=== PATIENT | female | born 1930 | race Caucasian/White ===

== ENCOUNTER 2017-11-04 16:52 | Emergency (ER) | payer OTHER ==
[~2017-11-04] VITALS: Ht 162.6 cm; Wt 61.2 kg
[2017-11-04] MEDS ORDERED: IV NS 0.9% 1,000 ML BAG IV ONE (17:00)
--- NOTE | 2017-11-04 17:00 | NUR ---
CASSANDRA Smith FROM [facility] FOR MORE ALTERED THAN USUAL, UNKOWN LAST WELL KNOWN TIME. SEEN BY MD FOR EVAL. NO NOTED DEFICIT. [id number]. VSS. SAFETY AND COMFORT MEASURES PROVIDED. WILL MONITOR.
[2017-11-04 17:13] LABS: BASOPHILS # (AUTO) 0.4 /CMM (0.0-0.2); BASOPHILS % (AUTO) 3.1 % (0.0-2.0); EOSINOPHILS % (AUTO) 1.9 % (0.0-6.0); HEMATOCRIT 48 % (33-45); HEMOGLOBIN 15.8 g/dL (11.5-14.8); LYMPHOCYTES # (AUTO) 2.9 /CMM (0.8-4.8); MEAN CORPUSCULAR HEMOGLOBIN 31 PG (26.0-33.0); MEAN CORPUSCULAR HGB CONC 33 g/dl (31.0-36.0); MEAN CORPUSCULAR VOLUME 95 fL (82-100); MONOCYTES # (AUTO) 0.8 /CMM (0.1-1.30); MONOCYTES % (AUTO) 6.8 % (2.0-12.0); NEUTROPHILS # (AUTO) 7.1 /CMM (1.8-8.9); NEUTROPHILS % (AUTO) 63.2 % (43.0-81.0); PLATELET COUNT (AUTO) 252 /CMM (150-450); RDW COEFFICIENT OF VARIATION 12.1 (11.5-15.0); RED BLOOD CELL COUNT(AUTO) 5.06 MIL/uL (4.0-5.2); WHITE BLOOD COUNT (AUTO) 11.4 K/uL (4.3-11.0)
--- NOTE | 2017-11-04 17:15 | NUR ---
IV ACCESS STARTED. BLOOD DRAWN FOR LABS. MEDICATED ORDERED. URINE SAMPLE OBTAINED VIA IN AND OUT CATH.
[2017-11-04 17:26] LABS: CALCIUM, SERUM 9.6 mg/dL (8.5-10.1); CARBON DIOXIDE 28 mmol/L (21-32); CHLORIDE 104 mmol/L (98-107); CREATININE 1.6 mg/dL (0.6-1.3); GLUCOSE 93 mg/dL (74-106); POTASSIUM 4.7 mmol/L (3.5-5.1); SODIUM SERUM 138 mmol/L (136-145); UREA NITROGEN, BLOOD 29 mg/dL (7-18)
[2017-11-04 17:27] LABS: INR 1.96 (0.85-1.15)
[2017-11-04 17:30] LABS: ALANINE AMINOTRANSFERASE 15 U/L (12-78); ALBUMIN 3.5 g/dL (3.4-5.0); ALKALINE PHOSPHATASE 82 U/L (46-116); ASPARTATE AMINOTRANSFERASE 22 U/L (15-37); BILIRUBIN,DIRECT 0.2 mg/dL (0.0-0.2); BILIRUBIN,TOTAL 0.8 mg/dL (0.2-1.0); LIPASE 147 U/L (73-393)
--- NOTE | 2017-11-04 17:30 | NUR ---
PT TAKEN TO CT.
[2017-11-04 17:34] LABS: APPEARANCE,URINE Clear (CLEAR); BILIRUBIN,URINE Negative (NEGATIVE); BLOOD, URINE Trace-intact Ery/uL (NEGATIVE); COLOR,URINE Yellow (YELLOW); KETONES,URINE Negative (NEGATIVE); LEUKOCYTE ESTERASE ,URINE Negative (NEGATIVE); NITRITE, URINE Negative (NEGATIVE); PROTEIN,URINE Negative (NEGATIVE); UGLUCOSE Negative (NEGATIVE); UROBILINOGEN,URINE 0.2 EU/dL (0.2)
[2017-11-04 17:38] LABS: TROPONIN I < 0.017 ng/mL (0.00-0.056)
[2017-11-04 17:45] LABS: BACTERIA,URINE None seen /HPF (None Seen); RBC,URINE 0-2 /HPF (0-2); SQUAMOUS EPITHELIAL CELL,UR None Seen /HPF (None Seen); WBC,URINE 0-2 /HPF (0-3)
--- NOTE | 2017-11-04 18:09 | NUR ---
CALLED [facility] SPOKE WITH BERNICE, EXPECTING A CALL BACK FROM A [facility]
--- NOTE | 2017-11-04 18:16 | NUR ---
MELBA DENNY CALLED ON THE PHONE WITH DR BEARDEN.
[2017-11-04] MEDS ORDERED: ASPIRIN 300 MG/SUPP.RECT RC ONE ×2 (18:30→18:33)
--- NOTE | 2017-11-04 18:46 | NUR ---
PATIENT WILL GO TO [facility] ER CALL FOR REPORT. ACCEPTING MD DR NAZARIO. [facility] ETA [id number].
--- NOTE | 2017-11-04 18:56 | NUR ---
REPORT GIVEN TO JULI MANZO OF [facility].
--- NOTE | 2017-11-04 19:02 | NUR ---
RECEIVED REPORT FROM ANAIS GOLDSMITH FOR [facility]
--- NOTE | 2017-11-04 20:20 | NUR ---
PT RESTING IN BED WITH NO S/S OF DISCOMFORT NOTED. WARM BLANKET PROVIDED TO PT. WILL CONTINUE TO MONITOR
[2017-11-04 20:26] VITALS: BP 159/58
--- NOTE | 2017-11-04 20:34 | NUR ---
REPORT GIVEN TO [facility] FOR [facility]. PT BEING TRANSFERRED [facility]. NO S/S OF DISTRESS NOTED UPON TRANSFER.
--- NOTE | 2017-11-04 20:35 | NUR ---
Patient Tranfers to outside Facility Physician:ARAVIND Location:[facility].
== END 2017-11-04 20:36 | disposition short-term general hospital (02) ==
LOC: ER 16:59
DX: I69.320 Aphasia following cerebral infarction (principal); G93.40 Encephalopathy, unspecified; E86.0 Dehydration; I48.91 Unspecified atrial fibrillation; I10 Essential (primary) hypertension; E78.5 Hyperlipidemia, unspecified; E03.9 Hypothyroidism, unspecified
CPT/HCPCS: 36415; 51701; 70450; 71045; 80048; 80076; 81001; 83690; 84484; 85025; 85730; 87081; 87086; 93005; 96360; 99285; A4606; J7030; Z7610; 81000-TC